=== PATIENT | male | born 1970 | race Caucasian/White ===

== ENCOUNTER 2022-04-27 18:32 | Emergency (ER) | payer SELFPAY ==
[2022-04-27 19:01] VITALS: BP 158/103; PULSE 74; RESP 20; TEMP 97.8; BMI 42.3
== END 2022-04-27 19:47 | disposition left against medical advice (07) ==
LOC: JER 18:32 → JERFT 18:32
DX: R21 Rash and other nonspecific skin eruption (principal)
CPT/HCPCS: 99281-25